=== PATIENT | male | born 1945 | race Caucasian/White ===

== ENCOUNTER 2017-06-06 10:41 | Inpatient (IN) | payer OTHER, MEDICARE ==
[2017-05-08 11:42] VITALS: BMI 31.0
--- NOTE | 2017-05-08 12:22 | PAT Medication Instructions ---
Service Date May 08, 2017. Current Home Medication List Ascorbic Acid (Vitamin C Tr/Ruby Hips), 1 TAB PO QAM Aspirin (Aspirin Ec), 81 MG PO QAM Multiple Vitamins W/ Minerals (Centrum Adults), 1 TAB PO QAM Naproxen (Aleve), 440 MG PO PRN Temazepam (Restoril), 15 MG PO HS PRN for PRN Medication Instructions For Your Scheduled Surgery - Contact your surgeon for instructions for: Naproxen (Aleve), 440 MG PO PRN - Hold the following medications the morning of surgery: Multiple Vitamins W/ Minerals (Centrum Adults), 1 TAB PO QAM Ascorbic Acid (Vitamin C Tr/Ruby Hips), 1 TAB PO QAM - Take the following medications the morning of surgery with a sip of water: Aspirin (Aspirin Ec), 81 MG PO QAM - Take the following medications as scheduled the night before surgery: Temazepam (Restoril), 15 MG PO HS PRN for PRN (if needed) If you have any questions please call us at [phone] or [phone] or [phone]
--- NOTE | 2017-05-08 12:54 | DIAGNOSTIC IMAGING REPORT ---
CHEST 2 VIEWS ROUTINE HISTORY: 71 years-old Male pat preoperative exam. No acute chest complaints. COMPARISON: Chest radiograph 11/12/2014 TECHNIQUE: PA and lateral views of the chest FINDINGS: Cardiac silhouette is mildly enlarged, unchanged. Lungs are mildly hyperinflated without pneumothorax or pleural effusion. Chronic interstitial opacities of the lung bases, left greater than right are unchanged suggesting areas of scarring. No lobar airspace consolidation. Bones of the chest appear grossly intact. There are severe degenerative changes of the right glenohumeral joint. Skeletal structures appear osteopenic. Degenerative changes also noted throughout the spine. IMPRESSION: Chronic changes as above without acute cardiopulmonary process. The above report was generated using voice recognition software. It may contain grammatical, syntax or spelling errors. Electronically signed by: Pako Sesay M.D. 05/08/2017 12:52 PM Dictated Date/Time: 05/08/2017 12:50 PM
[2017-05-08 12:55] LABS: BASO % 0.4 %; BASO ABS # 0.02 K/uL (0-0.2); COMPLETE YES; HEMATOCRIT 42.2 % (42-52); IG% 0.6 %; LYMPH % 20.1 %; MEAN CELL VOLUME 95.9 fL (80-100); MEAN CORPUSCULAR HEMOGLOBIN 31.8 pg (25-34); MEAN CORPUSCULAR HGB CONC 33.2 g/dl (32-36); MEAN PLATELET VOLUME 10.4 fL (7.4-10.4); MONO % 10.6 %; NEUT % 66.3 %; PLATELET COUNT 205 K/uL (130-400); WHITE BLOOD COUNT 4.98 K/uL (4.8-10.8)
[2017-05-08 13:05] LABS: PROTHROMBIN TIME (PATIENT) 10.2 SECONDS (9.0-12.0)
[2017-05-08 13:13] LABS: URINE APPEARANCE CLEAR (CLEAR); URINE BILIRUBIN NEG (NEG); URINE COLOR YELLOW; URINE NITRITE NEG (NEG); URINE SPECIFIC GRAVITY 1.011 (1.000-1.030); UROBILINOGEN NEG (NEG); ZZUR CULT IF INDIC CLEAN CATCH NO
[2017-05-08 13:19] LABS: MANUAL MICROSCOPIC REQUIRED? NO; REVIEW REQ? NO
[2017-05-08 13:35] LABS: ESTIMATED AVERAGE GLUCOSE 108 mg/dl; HA1C FLAG Normal (Normal)
[2017-05-08 13:57] LABS: BUN/CREATININE RATIO 17.2 (10-20); CALCIUM 8.6 mg/dl (8.5-10.1); CREATININE 0.81 mg/dl (0.60-1.40); POTASSIUM 4.2 mmol/L (3.5-5.1)
--- NOTE | 2017-06-05 19:42 | HISTORY & PHYSICAL EXAMINATION ---
DATE OF ADMISSION: 06/06/2017 CHIEF COMPLAINT: Chronic right shoulder pain. HISTORY OF PRESENT ILLNESS: This is a 72-year-old male patient of Dr. Allen'wil complaining of chronic right shoulder pain and rotator cuff tendinopathy. He has failed conservative treatment and wishes to proceed with a reversed total shoulder arthroplasty. PAST MEDICAL HISTORY: Rheumatoid arthritis, otherwise he is a healthy 71-year-old male patient with no heart, lung or diabetes history. SOCIAL HISTORY: Nonsmoker, nondrinker. PAST SURGICAL HISTORY: Right knee surgery and right hip surgery. REVIEW OF SYSTEMS: The patient complains of chronic right shoulder pain and weakness. Otherwise, denies any shortness of breath, chest pain, nausea, vomiting or any other joint complaints. FAMILY HISTORY: Noncontributory. MEDICATIONS: Include aspirin 81 mg daily, Centrum Silver daily, temazepam 15 mg at bedtime, sildenafil 20 mg 2 tablets p.r.n. daily, vitamin C daily, oxycodone 5 mg as needed. ALLERGIES: No known drug allergies. PHYSICAL EXAMINATION: GENERAL: Well-developed, well-nourished 72-year-old male in no acute distress. He is alert and oriented x3 and pleasant. HEENT: Normocephalic, atraumatic. Extraocular motions are intact. Pupils are equal and reactive to light. HEART: Regular rate and rhythm. No murmurs appreciated. LUNGS: Clear. ABDOMEN: Soft and nontender, bowel sounds are present. EXTREMITIES: Right shoulder reveals an active range of motion of 120 degrees, passively to 160. He has crepitation with passive range of motion and pain. He has 4/5 strength. NEUROLOGIC: Neurovascularly, he is intact in his right upper extremity. 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 He also has a history of rheumatoid arthritis. PLAN: The patient was advised of his diagnosis. Indications, risks, benefits, and postop course have all been reviewed. The patient wishes to proceed with a right reversed total shoulder arthroplasty. Necessary consent forms, preoperative testing and clearances will be obtained.
[2017-06-06] VITALS (8 sets, daily range): BP systolic 116–152; BP diastolic 77–84; PULSE 67–108; TEMP 36.4–36.9; O2SAT 91–96; Ht 175.3 cm; Wt 97.4 kg
[~2017-06-06] VITALS: Ht 175.3 cm; Wt 97.4 kg
[2017-06-06] MEDS: CEFAZOLIN 2000MG IV PUSH 10 ML IV SCH ×2 (06:00→12:45)
[~2017-06-06 10:41] MED LIST: ACETAMINOPHEN 500 MG TAB PO SCH; ASCO500T87 PO; ASPI81TA28 PO; BUPIVACAINE 0.25% 30 ML VIAL ONE; CeleBREX 200 MG CAP PO SCH; DEXAMETHASONE 4 MG TAB PO SCH; DEXAMETHASONE SOD INJ 4 MG/ML VIAL ONE; EpINEphrine INJ 1MG/ML AMP 1 MG/ML AMP ONE; FAMOTIDINE 20 MG TAB PO SCH; GABAPENTIN 300 MG CAP PO SCH; LACTATED RINGER'S 1000ML 1,000 ML IV SCH; LACTATED RINGER'S 1000ML IV SCH; METOCLOPRAMIDE HCL 10 MG TAB PO SCH; MULT-610 PO; NAPR1TAB9 PO; TEMA-79 PO
--- NOTE | 2017-06-06 11:36 | History & Physical Bridge Note ---
H&P Re-Evaluation Bridge Note: I have examined the patient, reviewed the History & Physical and in the interval since the performance of the History & Physical I have noted the following changes of clinical significance: No changes noted
[2017-06-06] MEDS ORDERED: LIDOCAINE HCL 2% 2 ML VIAL (20MG/ML) ONE (11:38)
[2017-06-06] MEDS ORDERED: PROPOFOL IV EMULSION 10 MG/ML 20 ML VIAL IV ONE (11:38)
[2017-06-06] MEDS ORDERED: ROCURONIUM BROMIDE 10 MG/ML 5 ML VIAL IV ONE (11:38)
[2017-06-06] MEDS ORDERED: MIDAZOLAM HCL 1 MG/ML 2ML VIAL ONE ×2 (11:39→12:24)
[2017-06-06] MEDS ORDERED: FENTANYL CITRATE INJ 50 MCG/1 ML 2 ML VIAL ONE (11:39)
[2017-06-06] MEDS ORDERED: EpINEphrine HCL INJ 1 MG/ML 5ML SYRINGE ONE (12:18)
[2017-06-06] MEDS ORDERED: BACITRACIN 50000 UNIT VIAL ONE (12:18)
[2017-06-06] MEDS ORDERED: GLYCOPYRROLATE INJ 0.2 MG/ML VIAL ONE (13:38)
[2017-06-06] MEDS ORDERED: NEOSTIGMINE METHYLSULFATE 5 MG/5 ML SYR ONE (13:38)
[2017-06-06] MEDS ORDERED: PHENYLEPHRINE 100MCG/ML 5ML SYR ONE (14:31)
[2017-06-06] MEDS ORDERED: FENTANYL CITRATE INJ 50 MCG/1 ML 2 ML VIAL IV PRN (15:00)
[2017-06-06] MEDS ORDERED: EpHEDrine SULFATE INJ 50 MG/ML AMP IV PRN (15:00)
[2017-06-06] MEDS ORDERED: ONDANSETRON INJ 2 MG/ML 2 ML VIAL IV PRN ×2 (15:00→16:00)
[2017-06-06] MEDS ORDERED: PROMETHAZINE HCL INJ 6.25 MG in SODIUM CHLORIDE 0.9% 50ML 50 ML IV PRN (15:00)
[2017-06-06] MEDS ORDERED: ATROPINE SULFATE 0.1 MG/ML 5ML SYR IV PRN (15:00)
[2017-06-06] MEDS ORDERED: PHENYLEPHRINE HCL INJ 10 MG/ML VIAL ONE (15:06)
[2017-06-06] MEDS ORDERED: EpHEDrine SULFATE 50MG/5ML SYR ONE (15:31)
[2017-06-06] MEDS ORDERED: NALOXONE HCL 0.4 MG/1 ML VIAL/CARP IV PRN (16:00)
[2017-06-06] MEDS ORDERED: MoRPHine SULFATE 2 MG/ML CARP IV PRN (16:00)
[2017-06-06] MEDS ORDERED: TEMAZEPAM 15 MG CAP PO PRN (16:00)
[2017-06-06] MEDS ORDERED: MAGNESIUM HYDROXIDE SUSP 30 ML UDC PO PRN (16:00)
[2017-06-06] MEDS ORDERED: METOCLOPRAMIDE HCL INJ 5 MG/ML 2 ML VIAL IV PRN (16:00)
[2017-06-06] MEDS ORDERED: ZOLPIDEM TARTRATE 5 MG TAB PO PRN (16:00)
[2017-06-06] MEDS ORDERED: CEFAZOLIN IV 2,000 MG in DEXTROSE 5% 50ML 50 ML IV SCH (16:00)
[2017-06-06] MEDS ORDERED: SOD PHOSPHATE/SOD BIPHOSPHATE ENEMA 132 ML BTL PR PRN (16:00)
[2017-06-06] MEDS ORDERED: BISACODYL 10 MG SUPP PR PRN (16:00)
[2017-06-06] MEDS ORDERED: OXYCODONE HCL IR 5 MG TAB (IMMEDIATE RELEASE) PO PRN (16:00)
--- NOTE | 2017-06-06 16:11 | [facility] Post Operative Brief Note ---
Immediate Operative Summary Operative Date Jun 06, 2017. Pre-Operative Diagnosis Right Shoulder Rotator Cuff Arthropathy, GLENOHUMERAL DJD, BICEPS TENDONOPATHY, Post-Operative Diagnosis Same as Preop Procedure(s) Performed Right Reverse Total Shoulder Arthroplasty, biceps tenodesis Surgeon Dr. Allen Air Conditioning Coil Assembler Surgeon(s) Titi Jean PA-C Estimated Blood Loss 100ML Findings as above Specimens A. Right Humeral Head Drains 2 hemovac Anesthesia general and regional Complication(s) None Disposition Recovery Room / PACU
--- NOTE | 2017-06-06 16:29 | Anesthesiology Progress Note ---
Anesthesia Post Op Note Date & Time Jun 06, 2017 at 16:28 Vital Signs Pain Intensity: 0 Vital Signs Past 12 Hours Date Time Temp Pulse Resp B/P (MAP) Pulse Ox O2 Delivery O2 Flow Rate FiO2 06/06/17 16:11 131/74 06/06/17 16:09 69 25 93 06/06/17 16:09 71 25 06/06/17 16:06 124/67 06/06/17 16:04 67 25 06/06/17 16:04 66 25 92 06/06/17 16:01 137/76 06/06/17 15:59 74 16 133/74 96 06/06/17 15:59 36.1 94 15 133/74 94 Oxymask 10 06/06/17 15:59 74 16 06/06/17 11:08 36.9 96 Room Air Notes Mental Status: alert / awake / arousable, participated in evaluation Pt Amnestic to Procedure: Yes Nausea / Vomiting: adequately controlled Pain: adequately controlled Airway Patency, RR, SpO2: stable & adequate BP & HR: stable & adequate Hydration State: stable & adequate Anesthetic Complications: no major complications apparent
[2017-06-06] MEDS: D5W AND 1/2NSS + 20MEQ KCL 1,000 ML IV SCH (17:46)
[2017-06-06] MEDS ORDERED: MoRPHine SULFATE 4 MG/ML 1 ML CARP\\VIAL IV PRN (18:00)
--- NOTE | 2017-06-06 18:01 | DIAGNOSTIC IMAGING REPORT ---
R SHOULDER MIN 2 VIEWS ROUTINE CLINICAL HISTORY: Post shoulder surgery. COMPARISON: None FINDINGS: Alignment of the right shoulder arthroplasty is anatomic. There is no periprosthetic fracture or unexpected radiopaque foreign body. Drains and skin andrew are present. There is mild right basilar airspace opacity. IMPRESSION: 1. Expected findings following right shoulder arthroplasty. 2. Mild right basilar airspace opacity. Electronically signed by: Minh Stephens M.D. 06/06/2017 6:00 PM Dictated Date/Time: 06/06/2017 5:59 PM
--- NOTE | 2017-06-06 19:05 | OPERATIVE REPORT ---
DATE OF OPERATION: 06/06/2017 INDICATION FOR PROCEDURE: The patient is a 72-year-old male with chronic progressive glenohumeral osteoarthritis of his right shoulder. He has pain, weakness and significant disability with regard to his shoulder. Radiographs demonstrate [id number] in the humeral joint and he has significant retroversion of glenoid and bone loss with a type 2B glenoid. MRI demonstrates he has a thin tendinopathic rotator cuff, though intact tissue but very thin. He has a biceps tenosynovitis and multiple loose bodies. Based on the configuration of his glenoid and tendinopathy of the rotator cuff plan is to proceed straight to a reverse total shoulder replacement. PREOPERATIVE DIAGNOSIS: Right shoulder end-stage glenohumeral osteoarthritis, rotator cuff arthropathy, rotator cuff tendinopathy, biceps tendon tendinopathy, multiple loose bodies. POSTOPERATIVE DIAGNOSIS: Same. PROCEDURE: Right reverse total shoulder arthroplasty including biceps tenodesis and removal of multiple loose bodies. SURGEON: Umair Allen MD. TRIAL COURT JUDGE: Titi Jean PA-C. ANESTHESIA: Regional block general. OPERATIVE PROCEDURE: The patient taken to the operating room, anesthetized under regional block and general anesthetic. He was positioned on the operating room table in a 40 degree beach chair position with a towel roll in the medial border of his right scapula. He had a foam headrest and protective eyewear placed. TEDs and SCDs. He was translated to right side of the bed, so his shoulder could be manipulated off the bed as necessary. Right shoulder was sterilely prepped and draped with ChloraPrep. An anterior incision was made across the right shoulder in the deltopectoral interval in a longitudinal fashion. Skin was incised sharply. Subcutaneous flaps were elevated. The cephalic vein was dissected out and retracted laterally with the deltoid pectoralis was retracted medially. The subscapularis bursa was thickened and resected. The subscapularis tendon was intact. There was a large fluid collection, sort of an expanded fluid collection over the rotator interval coming out of the glenohumeral joint consistent with synovitis of the glenohumeral joint. There were some loose bodies in that area as well at the base of the coracoid area. Biceps tendon sheath was distended with a chronic tenosynovitis coming from the glenohumeral joint. Biceps tendon was still intact but had tendinopathy within the joint and widening and thickening. The upper centimeter of the pectoralis tendon was released for inferior exposure. The biceps was tenodesed to the pectoralis tendon with [id number] #2 Fiberwire sutures and the biceps was released proximally. The circumflex vessels were tied off with silk ties. The subscapularis muscle fibers were split just cephalad to the level of the circumflex vessels. They were divided down to the capsule which was identified directly by visualization and a Kitner elevator was used to reflect the inferior fibers of the subscapularis off the inferior capsule and a blunt Hohmann retractor was placed. We did do a tug test and identified the axillary nerve to be below the Hohmann retractor. The subacromial bursa was resected. The synovitis in the rotator interval area was removed by making longitudinal incision, opening up the rotator interval, excising the inflamed synovial tissue. Then, the subscapularis tendon was taken down by starting in the bicipital groove and doing a subperiosteal dissection, dissecting the capsule and subscapularis tendon together off the lesser tuberosity off the neck of the humerus and we gradually externally rotated the humerus as we dissected this off the neck of the humerus. The humeral head was then exposed with extension and external rotation. The humeral head was markedly flattened from bone wear and there was osteophytes noted laterally, inferiorly and medially rimming the humeral head. The osteophytes were removed with an artist chisel and a rongeur and we made sure the capsule was released off the neck for exposure of the glenoid. At this time, the humeral head was retracted posterior to the glenoid with a Fukuda retractor. This demonstrated that there was a large posterior inferior osteophyte on the glenoid. There was a large osteophyte or calcified labrum inferiorly on the rim of the glenoid. There was large multiple loose bodies in the subcoracoid region and just anterior to the glenoid within the capsule anteriorly. The glenoid itself had retroversion posterior wear, complete eburnated bone with the femoral bone loss and medialization of the glenoid. The bone was very hard and sclerotic. I did place a #1 Vicryl in the subscapularis to control the subscapularis tendon and placed traction on as necessary. The coracohumeral ligaments were released and the capsule was then released using Winter scissors down to the glenoid, released off the anterior glenoid exposing some of the loose bodies which were removed and then the rotator interval was divided down to the glenoid to get a 360 degree release of the subscapularis. Partial capsulectomy was performed and all these anterior loose bodies were resected. The inferior large calcification along the inferior labrum was resected and a curved osteotome was used to remove the large posterior inferior osteophyte on the glenoid. Then I completed the capsular release anteriorly, inferiorly, and posteriorly using electrocautery on bone and a Cortes elevator with the axillary nerve protected inferiorly with the blunt Citlalli retractor. The biceps tendon was resected and divided off its superior attachment to the tubercle and all labral remnants were resected. At this time, then attention was taken back to the humeral preparation. Humerus was exposed with extension and external rotation. The cutting guide was used for the Tornier reversed total shoulder arthroplasty system using the Ascend Flex humeral head component and the Aequalis hydroxyapatite coated glenoid component and screw fixation with the 36 x 29 mm glenosphere 29 mm glenoid and we did a +2 offset on the glenosphere inferiorly. The humeral head cutting guide was placed at 20 degrees of retroversion. The humeral head cut was made. Then the humeral shaft was fashioned starting with a starter awl broaches up to a size 7. We used the box osteotome to open up the canal proximally and we broached up to a 6, which was very tight and we could not get a 7. The 6B long trial was left in and placed. The cup protector was placed and then retracted the humerus posterior to the glenoid and used the guide for the 29 base plate to make our drill hole. This was placed in the lower third of the glenoid and placed some reangulation of the implant, so we would get the best bone in the glenoid, which had bone loss, so we did antevert this some and also placed some inferior tilt on the implant compared to the glenoid bone pattern that was there. After the central drill hole was made, I went ahead and used the power reamer until we got rim of compression with taking very little bone away just enough to change the angle and get circumferential rim of bone to a flat surface for the baseplate. There were still some bone loss brought out, so I chose to curette that to roughen it up and then I used bone graft later in the case. Then I widened the hole for the central post with a drill hole and then went ahead and impacted the 29 baseplate which was a standard baseplate with a short stem into position. The bone was extremely hard and the fixation was excellent. Before putting the implant down, I did place a cancellous bone from the humeral head between the base plate and the standing rock glenoid to get some lateral offset of the glenoid component and fill in the defect. After bone graft was placed, we packed this down fully and used the anterior and posterior compression screws of 18 and 29 mm and superior and inferior locking screws of 23 and 29 mm respectively all 4.5 mm screws. There was excellent fixation. The patient had very hard bone. At this time, I chose to use a 36 x 29 glenosphere with +2 offset inferiorly. This was placed onto the baseplate, impacted into position and the screw was tightened and we checked this for stability. Then attention was taken to the humeral trialing and then the high offset baseplate trial was placed and we used a 36 x +6 mm humeral insert and that was very stable through full range of motion and soft tissue tension appeared to be satisfactory. There was no shuck with traction on the extremity. The trials were then removed and the final components were assembled which were the Ascend Flex TTC 6B long humeral component with the +0 high offset 3.5 tray and the 36 mm +6 poly insert. After that was assembled, this implant was impacted into the humerus with a very stable fixation. It was a very tight fit and we could not get it completely seated but it was only about a millimeter above the bone and it was tight fit. We did place three #5 FiberWire sutures transosseously prior to placing the implant. After the shoulder was reduced to the glenosphere and irrigation with antibiotic solution was performed, the subscapularis was repaired with the FiberWire sutures using Saad-Mario suture technique and lateral row soft tissue fixation with [id number]-[id number] #2 FiberWire and we did have to release some of the supraspinatus during the procedure and we repaired this back to the infraspinatus with [id number]-os-[id number] #2 FiberWire suture and we sutured some of the supraspinatus to the lateral most aspect of the subscapularis repair as well. The pectoralis was repaired with oztfwo-bt-ayuad #2 FiberWire and wnjyxv-im-[id number] #1 Vicryl sutures. The arm was taken through range of motion and was 55 degrees of external rotation without any tension on the subscap repair forward elevation to least 150 degrees and abduction to 90 degrees without any tension on the repair. After further irrigation, 2 Hemovac drains were placed deep and brought out laterally and then the deltopectoral interval was repaired with yahyol-cw-pdklc #1 Vicryl sutures. Subcutaneous tissue closed with interrupted 2-0 Vicryl, skin closed with andrew. Sterile dressings were applied. The patient was placed into a sling immobilizer and tolerated the procedure well. BRANDON Turcios was my clinical assistant. He functioned as clinical assistant for the entire procedure. He assisted in patient positioning, prepping, draping, arm positioning, instrument management, soft tissue retraction and suture management. He did perform the subcutaneous skin closure and will participate in postoperative care of the patient. I attest to the content of the Intraoperative Record and any orders documented therein. Any exception s are noted below.
[2017-06-06] MEDS: CEFAZOLIN IV 2,000 MG in SYRINGE 0 ML IV SCH (20:31)
[2017-06-06] MEDS: DOCUSATE SODIUM 100 MG CAP PO SCH (20:31)
[2017-06-06] MEDS: ACETAMINOPHEN 500 MG TAB PO SCH (22:04)
--- NOTE | 2017-06-06 22:04 | Medical Consult ---
Consultation Date of Consultation: Jun 06, 2017. Attending Physician: Umair Allen M.D. Reason for Consultation: Medical management History of Present Illness 72 y/o M who was admitted earlier today s/p R reverse total shoulder with Dr. Allen. He is doing well post-op. He did have an episode of emesis during transport and has had mild nausea since that time, but it is improving. He notes some tingling in his R fingers, but no major pain related to the surgery. Denies chest pain or SOB. Has been tolerating crackers and jello. Pt denies fever, abd pain, c/d, LE pain or swelling. Social History Smoking Status: Former Smoker Alcohol Use: none Drug Use: none Allergies Coded Allergies: No Known Allergies (Verified , NONE, 05/08/17) Current Inpatient Medications Current Inpatient Medications Medications (Trade) Dose Ordered Sig/Rell Route Start Time Stop Time Status Last Admin Dose Admin Aspirin (Ecotrin Tab) 81 mg QAM PO 06/07/17 09:00 07/07/17 08:59 Temazepam (Restoril Cap) 15 mg HS PRN PO 06/06/17 16:00 07/06/17 15:59 Ascorbic Acid (Vitamin C Tab) 500 mg QAM PO 06/07/17 09:00 07/07/17 08:59 Diphenhydramine HCl (Benadryl Cap) 25 mg Q8 PRN PO 06/06/17 16:00 07/06/17 15:59 Zolpidem Tartrate (Ambien Tab) 5 mg HSZ PRN PO 06/06/17 16:00 07/06/17 15:59 Metoclopramide HCl (Reglan Inj) 10 mg Q6H PRN IV 06/06/17 16:00 07/06/17 15:59 Ondansetron HCl (Zofran Inj) 4 mg Q6H PRN IV 06/06/17 16:00 07/06/17 15:59 06/06/17 17:33 4 MG Pantoprazole Sodium (Protonix Tab) 40 mg QAM PO 06/07/17 09:00 07/07/17 08:59 Potassium Chloride/Dextrose/ Sod Cl 1,000 ml @ 100 mls/hr Q10H IV 06/06/17 18:00 06/07/17 16:00 Oxycodone HCl (Roxicodone Immediate Rel Tab) `1-2 TABS FOR PAIN `1 TAB... Q4H PRN PO 06/06/17 16:00 06/20/17 15:59 Acetaminophen (Tylenol Tab) 1,000 mg Q8 PO 06/06/17 22:00 07/06/17 21:59 Morphine Sulfate (MoRPHine SULFATE INJ) 2 mg Q2H PRN IV 06/06/17 16:00 06/20/17 15:59 Naloxone HCl (Narcan Inj) 0.1 mg Q2M PRN IV 06/06/17 16:00 07/06/17 15:59 Magnesium Hydroxide (Milk Of Magnesia Susp) 30 ml Q6H PRN PO 06/06/17 16:00 07/06/17 15:59 Bisacodyl (Dulcolax Supp) 10 mg DAILY PRN UT 06/06/17 16:00 07/06/17 15:59 Sodium Biphosphate/ Sodium Phosphate (Fleet Enema) 132 ml DAILY PRN UT 06/06/17 16:00 07/06/17 15:59 Docusate Sodium (coLACE CAP) 100 mg BID PO 06/06/17 21:00 07/06/17 20:59 06/06/17 20:31 100 MG Multivitamins (Multivitamin Tab) 1 tab DAILY PO 06/07/17 09:00 07/07/17 08:59 Cefazolin Sodium 2000 mg/Syringe 10 ml @ 2.5 mls/min Q8H IV 06/06/17 20:00 06/07/17 04:03 06/06/17 20:31 2.5 MLS/MIN Morphine Sulfate (MoRPHine SULFATE INJ) 4 mg Q2H PRN IV 06/06/17 18:00 06/20/17 17:59 Review of Systems Pertinent positives and negatives reviewed in HPI--all others negative Physical Exam Date Time Temp Pulse Resp B/P (MAP) Pulse Ox O2 Delivery O2 Flow Rate FiO2 06/06/17 20:17 36.5 104 20 152/84 (106) 91 Nasal Cannula 4.0 06/06/17 19:09 36.4 97 19 134/77 (96) 94 Nasal Cannula 4.0 06/06/17 18:07 36.4 98 18 125/77 (93) 93 Nasal Cannula 4.0 06/06/17 17:32 36.6 67 18 132/77 (95) 96 Nasal Cannula 4.0 06/06/17 17:00 36.7 86 18 143/80 (101) 93 Nasal Cannula 4.0 06/06/17 17:00 Nasal Cannula 4.0 06/06/17 17:00 Nasal Cannula 4.0 06/06/17 16:45 36.7 06/06/17 16:41 126/71 06/06/17 16:38 79 18 95 06/06/17 16:38 77 18 06/06/17 16:36 125/71 06/06/17 16:33 78 15 95 06/06/17 16:33 77 15 06/06/17 16:31 129/71 06/06/17 16:28 72 29 06/06/17 16:28 72 29 93 06/06/17 16:27 67 25 06/06/17 16:27 67 25 93 06/06/17 16:26 131/70 06/06/17 16:22 70 25 93 06/06/17 16:22 70 25 06/06/17 16:21 131/77 06/06/17 16:17 68 19 06/06/17 16:17 69 19 92 06/06/17 16:16 129/67 06/06/17 16:12 71 27 94 06/06/17 16:12 70 27 06/06/17 16:11 131/74 06/06/17 16:09 69 25 93 06/06/17 16:09 71 25 06/06/17 16:06 124/67 06/06/17 16:04 67 25 06/06/17 16:04 66 25 92 06/06/17 16:01 137/76 06/06/17 15:59 74 16 133/74 96 06/06/17 15:59 36.1 94 15 133/74 94 Oxymask 10 06/06/17 15:59 74 16 06/06/17 11:08 36.9 96 Room Air General Appearance: WD/WN, no apparent distress Head: normocephalic, atraumatic Eyes: EOMI, sclerae normal Respiratory/Chest: normal breath sounds, no respiratory distress Cardiovascular: regular rate, rhythm, no edema Abdomen/GI: non tender, soft Extremities/Musculoskelatal: no calf tenderness, no pedal edema Neurologic/Psych: alert, normal mood/affect, oriented x 3 Skin: normal color, warm/dry Assessment & Plan 72 y/o M who was admitted on 06/06 s/p R reverse total shoulder with Dr. Allen. R shoulder pain: as per ortho RA: stable Hb stable Cr stable
[2017-06-07] VITALS (7 sets, daily range): BP systolic 110–135; BP diastolic 66–81; PULSE 81–98; TEMP 36.6–37; O2SAT 91–93
[2017-06-07] MEDS: D5W AND 1/2NSS + 20MEQ KCL 1,000 ML IV SCH ×2 (00:09→10:10)
[2017-06-07] MEDS: CEFAZOLIN IV 2,000 MG in SYRINGE 0 ML IV SCH (04:35)
[2017-06-07] MEDS: ACETAMINOPHEN 500 MG TAB PO SCH ×3 (04:43→22:04)
[2017-06-07 06:12] LABS: HEMATOCRIT 38.2 % (42-52); MEAN CELL VOLUME 96.7 fL (80-100); MEAN CORPUSCULAR HEMOGLOBIN 31.6 pg (25-34); MEAN CORPUSCULAR HGB CONC 32.7 g/dl (32-36); MEAN PLATELET VOLUME 10.5 fL (7.4-10.4); PLATELET COUNT 213 K/uL (130-400); RED BLOOD COUNT 3.95 M/uL (4.7-6.1)
[2017-06-07 06:31] LABS: CREATININE 0.95 mg/dl (0.60-1.40)
[2017-06-07] MEDS: PANTOprazole SOD 40 MG TAB PO SCH (08:16)
[2017-06-07] MEDS: DOCUSATE SODIUM 100 MG CAP PO SCH ×2 (08:16→20:46)
[2017-06-07] MEDS: ASCORBIC ACID 500 MG TAB PO SCH (08:16)
[2017-06-07] MEDS: MULTIVITAMIN TAB PO SCH (08:16)
[2017-06-07] MEDS: ASPIRIN 81 MG ECTAB PO SCH (08:16)
--- NOTE | 2017-06-07 10:33 | Orthopedic Progress Note ---
Orthopedic Progress Note Date of Service Jun 07, 2017. Subjective Post OP Day: 1 Reports: feeling well, pain controlled w PO medications, Denies: complaints, chest pain, SOB, nausea / vomiting, light headedness, calf pain Objective N/V intact, capillary refill less than 2 sec., dressing C/D/I, A&O x3 Sling in tact, fingers mobile. Date Time Temp Pulse Resp B/P (MAP) Pulse Ox O2 Delivery O2 Flow Rate FiO2 06/07/17 07:52 Room Air 06/07/17 07:48 36.6 84 18 130/72 (91) 91 Room Air 06/07/17 03:20 36.8 98 18 110/70 (83) 93 Nasal Cannula 2.0 06/06/17 23:30 93 Nasal Cannula 2.0 06/06/17 23:24 36.6 108 18 116/78 (91) 92 Nasal Cannula 2.0 06/06/17 20:17 36.5 104 20 152/84 (106) 91 Nasal Cannula 4.0 06/06/17 19:09 36.4 97 19 134/77 (96) 94 Nasal Cannula 4.0 06/06/17 18:07 36.4 98 18 125/77 (93) 93 Nasal Cannula 4.0 06/06/17 17:32 36.6 67 18 132/77 (95) 96 Nasal Cannula 4.0 06/06/17 17:00 36.7 86 18 143/80 (101) 93 Nasal Cannula 4.0 06/06/17 17:00 Nasal Cannula 4.0 06/06/17 17:00 Nasal Cannula 4.0 06/06/17 16:45 36.7 06/06/17 16:41 126/71 06/06/17 16:38 79 18 95 06/06/17 16:38 77 18 06/06/17 16:36 125/71 06/06/17 16:33 78 15 95 06/06/17 16:33 77 15 06/06/17 16:31 129/71 06/06/17 16:28 72 29 06/06/17 16:28 72 29 93 06/06/17 16:27 67 25 06/06/17 16:27 67 25 93 06/06/17 16:26 131/70 06/06/17 16:22 70 25 93 06/06/17 16:22 70 25 06/06/17 16:21 131/77 06/06/17 16:17 68 19 06/06/17 16:17 69 19 92 06/06/17 16:16 129/67 06/06/17 16:12 71 27 94 06/06/17 16:12 70 27 06/06/17 16:11 131/74 06/06/17 16:09 69 25 93 06/06/17 16:09 71 25 06/06/17 16:06 124/67 06/06/17 16:04 67 25 06/06/17 16:04 66 25 92 06/06/17 16:01 137/76 06/06/17 15:59 74 16 133/74 96 06/06/17 15:59 36.1 94 15 133/74 94 Oxymask 10 06/06/17 15:59 74 16 06/06/17 11:08 36.9 96 Room Air Laboratory Results 24 Hours: Test 06/07/17 05:39 Hematocrit 38.2 % Hemoglobin 12.5 g/dL Assessment & Plan Assessment: POD #1, Right Reversed TSA, Biceps Tenodesis, Removal loose bodies. Plan: Limited PT/ OT DVT proph- ASA D/C planning- Home w HEP, NO formal PT needed. As per medicine. Inhouse Planning Pain Management: Ultram, Morphine, PO Tylenol, Oxy IR DVT Prophylaxis: SCDs, ASA Discharge Planning Discharge Planning: home Pain Management: PO Tylenol, Oxy IR DVT Prophylaxis: TEDs, ASA
--- NOTE | 2017-06-07 13:58 | Progress Note ---
Subjective Date of Service: Jun 07, 2017. Subjective Pt evaluation today including: conversation w/ patient, physical exam, chart review, lab review, review of studies, review of inpatient medication list Pain controlled Drain in place No acute events overnight Review of Systems Constitutional: No fever, No chills, No sweats, No weight loss, No weakness Eyes: No worsening of vision, No eye pain, No redness, No discharge ENT: No hearing loss, No unusual epistaxis, No nasal symptoms, No sore throat Respiratory: No cough, No sputum, No wheezing, No shortness of breath, No dyspnea on exertion Cardiac: No chest pain, No orthopnea, No PND, No edema, No claudication Abdomen: No pain, No nausea, No vomiting, No diarrhea, No constipation Musculoskeletal: No joint pain, No muscle pain, No swelling, No calf pain Male : No dysuria, No urinary frequency, No incontinence, No slowing stream Neurologic: No memory loss, No paralysis, No weakness, No numbness/tingling Psychiatric: No depression symptoms, No anhedonism, No anxiety, No insomnia Skin: No rash, No itch Objective Vital Signs Date Time Temp Pulse Resp B/P (MAP) Pulse Ox O2 Delivery O2 Flow Rate FiO2 06/07/17 12:16 87 14 135/72 (93) 93 Room Air 06/07/17 07:52 Room Air 06/07/17 07:48 36.6 84 18 130/72 (91) 91 Room Air 06/07/17 03:20 36.8 98 18 110/70 (83) 93 Nasal Cannula 2.0 06/06/17 23:30 93 Nasal Cannula 2.0 06/06/17 23:24 36.6 108 18 116/78 (91) 92 Nasal Cannula 2.0 06/06/17 20:17 36.5 104 20 152/84 (106) 91 Nasal Cannula 4.0 06/06/17 19:09 36.4 97 19 134/77 (96) 94 Nasal Cannula 4.0 06/06/17 18:07 36.4 98 18 125/77 (93) 93 Nasal Cannula 4.0 06/06/17 17:32 36.6 67 18 132/77 (95) 96 Nasal Cannula 4.0 06/06/17 17:00 36.7 86 18 143/80 (101) 93 Nasal Cannula 4.0 06/06/17 17:00 Nasal Cannula 4.0 06/06/17 17:00 Nasal Cannula 4.0 06/06/17 16:45 36.7 06/06/17 16:41 126/71 06/06/17 16:38 79 18 95 06/06/17 16:38 77 18 06/06/17 16:36 125/71 06/06/17 16:33 78 15 95 06/06/17 16:33 77 15 06/06/17 16:31 129/71 06/06/17 16:28 72 29 06/06/17 16:28 72 29 93 06/06/17 16:27 67 25 06/06/17 16:27 67 25 93 06/06/17 16:26 131/70 06/06/17 16:22 70 25 93 06/06/17 16:22 70 25 06/06/17 16:21 131/77 06/06/17 16:17 68 19 06/06/17 16:17 69 19 92 06/06/17 16:16 129/67 06/06/17 16:12 71 27 94 06/06/17 16:12 70 27 06/06/17 16:11 131/74 06/06/17 16:09 69 25 93 06/06/17 16:09 71 25 06/06/17 16:06 124/67 06/06/17 16:04 67 25 06/06/17 16:04 66 25 92 06/06/17 16:01 137/76 06/06/17 15:59 74 16 133/74 96 06/06/17 15:59 36.1 94 15 133/74 94 Oxymask 10 06/06/17 15:59 74 16 Physical Exam General Appearance: WD/WN, no apparent distress Eyes: normal inspection, PERRL, EOMI, sclerae normal Neck: supple, no adenopathy, thyroid normal, no JVD Respiratory/Chest: chest non-tender, lungs clear, normal breath sounds, no respiratory distress Cardiovascular: regular rate, rhythm, no edema, no gallop, no JVD Abdomen: normal bowel sounds, non tender, soft, no organomegaly Neurologic/Psychiatric: no motor/sensory deficits, alert, normal mood/affect, oriented x 3 Laboratory Results Last 24 Hours Test 06/07/17 05:39 White Blood Count 8.90 K/uL Red Blood Count 3.95 M/uL Hemoglobin 12.5 g/dL Hematocrit 38.2 % Mean Corpuscular Volume 96.7 fL Mean Corpuscular Hemoglobin 31.6 pg Mean Corpuscular Hemoglobin Concent 32.7 g/dl RDW Standard Deviation 47.4 fL RDW Coefficient of Variation 13.5 % Platelet Count 213 K/uL Mean Platelet Volume 10.5 fL Sodium Level 138 mmol/L Potassium Level 4.0 mmol/L Chloride Level 106 mmol/L Carbon Dioxide Level 28 mmol/L Anion Gap 4.0 mmol/L Blood Urea Nitrogen 21 mg/dl Creatinine 0.95 mg/dl Est Creatinine Clear Calc Drug Dose 79.7 ml/min Estimated GFR () 91.7 Estimated GFR (Non- 79.1 BUN/Creatinine Ratio 22.0 Random Glucose 144 mg/dl Calcium Level 8.0 mg/dl Assessment and Plan 72 y/o M who was admitted on 06/06 s/p R reverse total shoulder with Dr. Allen. R shoulder pain controlled at this time Drain management, DVT ppx, dispo per primary team Monitor for acute blood loss anemia, stable RA: stable at this time Pt is FULL CODE Stable for Discharge, will sign off at this time
[2017-06-08 02:16] VITALS: TEMP 36.8
[2017-06-08] MEDS: ACETAMINOPHEN 500 MG TAB PO SCH (05:23)
[2017-06-08 06:00] LABS: HEMATOCRIT 39.2 % (42-52); MEAN CELL VOLUME 96.6 fL (80-100); MEAN CORPUSCULAR HEMOGLOBIN 31.5 pg (25-34); MEAN CORPUSCULAR HGB CONC 32.7 g/dl (32-36); MEAN PLATELET VOLUME 10.4 fL (7.4-10.4); PLATELET COUNT 201 K/uL (130-400); RED BLOOD COUNT 4.06 M/uL (4.7-6.1); WHITE BLOOD COUNT 9.12 K/uL (4.8-10.8)
[2017-06-08 06:33] LABS: BUN/CREATININE RATIO 17.2 (10-20); CALCIUM 8.1 mg/dl (8.5-10.1); CREATININE 0.95 mg/dl (0.60-1.40); POTASSIUM 4.1 mmol/L (3.5-5.1)
[2017-06-08 07:45] VITALS: O2SAT 94
[2017-06-08 08:00] VITALS: BP 134/78; PULSE 78; TEMP 37; O2SAT 94
[2017-06-08 08:04] VITALS: O2SAT 94
--- NOTE | 2017-06-08 08:53 | Orthopedic Progress Note ---
Orthopedic Progress Note Date of Service Jun 08, 2017. Subjective Post OP Day: 2 Reports: feeling well, pain controlled w PO medications, Denies: complaints, chest pain, SOB, nausea / vomiting, light headedness, calf pain Objective N/V intact, capillary refill less than 2 sec., incision C/D/I, A&O x3 FINGERS MOBILE, SLING IN TACT Date Time Temp Pulse Resp B/P (MAP) Pulse Ox O2 Delivery O2 Flow Rate FiO2 06/08/17 08:04 94 Room Air 06/08/17 08:00 37.0 78 18 134/78 (96) 94 Room Air 06/08/17 02:16 36.8 06/07/17 23:30 Room Air 06/07/17 22:50 37.0 81 18 131/81 (98) 93 Room Air 06/07/17 19:01 93 Room Air 06/07/17 15:45 Room Air 06/07/17 15:07 36.7 90 16 116/66 (83) 91 Room Air 06/07/17 12:16 87 14 135/72 (93) 93 Room Air 06/07/17 10:07 90 92 Laboratory Results 24 Hours: Test 06/08/17 05:40 Hematocrit 39.2 % Hemoglobin 12.8 g/dL Assessment & Plan Assessment: POD #2, Right Reversed TSA, Biceps Tenodesis, Removal loose bodies. Plan: Limited PT/ OT DVT proph- ASA D/C planning- Home w HEP, NO formal PT needed. HOME TODAY. As per medicine. Inhouse Planning Pain Management: Ultram, Morphine, PO Tylenol, Oxy IR DVT Prophylaxis: SCDs, ASA Discharge Planning Discharge Planning: home Pain Management: PO Tylenol, Oxy IR DVT Prophylaxis: TEDs, ASA
[2017-06-08] MEDS ORDERED: RXC5 PO (08:55)
[2017-06-08] MEDS ORDERED: ACET-24 PO (08:55)
--- NOTE | 2017-06-08 08:56 | Discharge Instructions ---
Discharge Instructions Date of Service Jun 08, 2017. Admission Reason for Admission: Right Shoulder Rotator Cuff Arthropathy Discharge Discharge Diagnosis / Problem: RIGHT REVERSED TSA Discharge Goals Goal(s): Improve function Activity Recommendations Activity Limitations: as noted below . Instructions / Follow-Up Instructions / Follow-Up ACTIVITY RECOMMENDATIONS: SELF CARE INSTRUCTIONS AFTER TOTAL SHOULDER ARTHROPLASTY REVERSE A. You may do daily exercises as taught in physical therapy while in hospital. No lifting with the operative arm. B. You are to wear your sling/immobilizer at all times EXCEPT when performing your daily exercises and for hygiene purposes. C. You may perform dry, daily dressing changes. Please keep your incision covered. You may shower 48 hours after surgery. Do not apply soap or any ointment/ lotions directly over incision. Do not soak incision in bath tub/swimming pool. D. You may use ice as needed to operative shoulder. SPECIAL CARE INSTRUCTIONS: VERY IMPORTANT TO READ AND REVIEW A. There are a few signs you need to watch for after you are home. Call [facility] at [phone] if you experience any of the followin. Increased severe shoulder pain. Some pain is expected especially when you exercise. 2. Increased swelling in you shoulder or arm; pain or swelling in either upper extremity. 3. Any fluid drainage from the incision. 4. Shortness of breath or chest pain. B. Please call [facility] at [phone] if you have any questions or concerns about your operation or recovery. C. Call your physician if: 1. Temperature is greater than 101 degrees (F). 2. Pain is not relieved by prescribed pain medications. 3. Increase drainage or redness from incision. 4. Unanswered questions or concerns. FOLLOW UP VISIT: Please call [facility] at [phone] to schedule a follow up appointment with Dr. Allen or his PA in 12-14 days from your surgery date. Current Hospital Diet Patient's current hospital diet: Regular Diet Discharge Diet Recommended Diet: Regular Diet Procedures Procedures Performed: Right Reverse Total Shoulder Arthroplasty, biceps tenodesis Pending Studies Studies pending at discharge: no Laboratory Results Hemoglobin A1c Test 05/08/17 12:34 Range/Units Estimated Average Glucose 108 mg/dl Hemoglobin A1c 5.4 4.5-5.6 % Medical Emergencies . Who to Call and When: Medical Emergencies: If at any time you feel your situation is an emergency, please call 911 immediately. . Non-Emergent Contact Non-Emergency issues call your: Primary Care Provider . "Provider Documentation" section prepared by Titi Jean. . VTE Core Measure Inpt VTE Proph given/why not?: Other Anticoagulation (ASA), T.E.D. Stockings, SCD's [place] Drug Monitoring Program Search Results: patient reviewed within database, no issues identified
[2017-06-08] MEDS: PANTOprazole SOD 40 MG TAB PO SCH (09:24)
[2017-06-08] MEDS: ASPIRIN 81 MG ECTAB PO SCH (09:24)
[2017-06-08] MEDS: DOCUSATE SODIUM 100 MG CAP PO SCH (09:24)
[2017-06-08] MEDS: ASCORBIC ACID 500 MG TAB PO SCH (09:24)
[2017-06-08] MEDS: MULTIVITAMIN TAB PO SCH (09:24)
[2017-06-08 10:54] VITALS: BP 134/78; PULSE 78; TEMP 37; O2SAT 94
[2017-06-08 10:57] VITALS: BP 134/78; PULSE 78; TEMP 37; O2SAT 94
--- NOTE | 2017-06-21 12:43 | DISCHARGE SUMMARY ---
HISTORY OF PRESENT ILLNESS: This is a 72-year-old male patient of Dr. Allen complaining of chronic right shoulder pain and insufficient rotator cuff chronically. He has failed conservative treatment and elected to proceed with a right reversed total shoulder arthroplasty. PAST MEDICAL HISTORY: Rheumatoid arthritis, otherwise a healthy 72-year-old male patient with no heart, lung or diabetes history. POSTOPERATIVE COURSE: The patient underwent a right reverse total shoulder arthroplasty and biceps tenodesis on 06/06/2017. Postoperatively, he was followed closely with medical consultation, DVT prophylaxis in the form of aspirin and pain control. He did well postoperatively and was discharged on postoperative day #2. PHYSICAL EXAMINATION: On discharge, right shoulder incision was clean, dry and intact. Yvette were intact. Skin edges were approximated well. There was no redness or drainage. Neurologically and neurovascularly, he was intact in his right upper extremity. DIAGNOSES: Right shoulder insufficient rotator cuff status post right reverse total shoulder arthroplasty and biceps tenodesis. He also has a history of rheumatoid arthritis. PLAN: The patient was discharged on postoperative day #2 to home. He will continue his preadmission medications with the addition of pain medication. He will do limited home exercise program only as instructed in the hospital. He will follow up in the office as scheduled postoperatively.
== END 2017-06-08 11:22 | disposition home or self-care (01) | DRG 483 ==
LOC: C.ACU 10:41 → C.3E 16:06 → ENRESERV 16:26
PROVIDERS: ADMIT Orthopaedic Surgery Sports Medicine; ATTEND Orthopaedic Surgery Sports Medicine
PROC: 0RRJ00Z Replacement of Right Shoulder Joint with Reverse Ball and Socket Synthetic Substitute, Open Approach (ICD-10-PCS; principal; 2017-06-06 13:00)
DX: M19.011 Primary osteoarthritis, right shoulder (principal); M06.9 Rheumatoid arthritis, unspecified; M24.011 Loose body in right shoulder